=== PATIENT | male | born 1955 | race Caucasian/White ===

== ENCOUNTER 2020-10-14 17:19 | Inpatient (IN) | payer MEDICARE ==
[~2020-10-14] VITALS: Ht 167.6 cm; Wt 56.7 kg
[2020-10-14 18:11] LABS: BASOPHILS 0.3 % (0-2); EOSINOPHILS 1.4 % (0-7); HEMATOCRIT 43.5 % (42.0-54.0); HEMOGLOBIN 15.2 g/dL (13.5-17.5); IMMATURE GRANULOCYTES 0.2 % (0-5); LYMPHOCYTE ABS# 1.29 10x3/uL (1.32-3.57); LYMPHOCYTES 20.2 % (15-50); MCH 31.7 pg (26.0-34.0); MCHC 34.9 g/dL (31.0-37.0); MCV 90.6 fL (80.0-100.0); MONOCYTES 7.7 % (2-11); NEUTROPHIL ABS# 4.48 10x3/uL (1.78-5.38); NEUTROPHILS 70.2 % (40-80); PLATELET COUNT 231 10x3/uL (130-400); RDW 13.1 % (11.5-14.5); WBC 6.4 10x3/uL (4.8-10.8)
[2020-10-14 18:15] LABS: CALC OSMOLALITY 269 mosm/kg (275-300); CARBON DIOXIDE 27.8 mmol/L (21.0-32.0); CHLORIDE - SERUM 101 mmol/L (98-107); CREATININE - SERUM 0.8 mg/dL (0.6-1.3); GLUCOSE 97 mg/dL (74-106); POTASSIUM - SERUM 4.2 mmol/L (3.5-5.1); SODIUM 134 mmol/L (136-145); UREA NITROGEN 18 mg/dL (7-18); eGFR NON AFRICAN AMERICAN > 90 mL/min (90-120)
[2020-10-14 18:21] LABS: ALBUMIN 3.9 g/dL (3.4-5.0); ALKALINE PHOSPHATASE 140 U/L (30-120); ALT (SGPT) 18 U/L (10-68); BILIRUBIN - TOTAL 0.59 mg/dL (0.2-1.3); PROTEIN - SERUM 7.4 g/dL (6.4-8.2)
[2020-10-14 18:22] LABS: INR 1.17 (0.85-1.17); PROTIME 13.8 SECONDS (11.6-15.0)
[2020-10-14 18:47] VITALS: BP 130/89
--- NOTE | 2020-10-14 19:50 | NUR ---
REPORT GIVEN TO RN, VERBAL ACKNOWLEDGEMENT OBTAINED
[2020-10-14 20:04] LABS: HEMATOCRIT 41.6 % (42.0-54.0); HEMOGLOBIN 14.3 g/dL (13.5-17.5)
[2020-10-14 21:38] LABS: BILIRUBIN NEGATIVE (NEGATIVE); KETONE NEGATIVE (NEGATIVE); NITRITE NEGATIVE (NEGATIVE); UROBILINOGEN NORMAL mg/dL (< 2)
--- NOTE | 2020-10-14 22:23 | NUR ---
PT DID NOT GO TO ROOM DUE TO ADMITTING HAD NOT SEEN PT AND THEEN WANTED TO [facility] TO SEE IF WE NEEDED TO GO TO ICU OR FLOOR, PT IS BEING TRANSFERRED AT THIS TO FLOOR.
[2020-10-14 23:07] VITALS: BMI 20.2
[2020-10-15 01:05] LABS: HEMATOCRIT 41.4 % (42.0-54.0); HEMOGLOBIN 14.3 g/dL (13.5-17.5)
--- NOTE | 2020-10-15 01:05 | NUR ---
PT WAS BROUGHT TO THE FLOOR VIA BED. PT WAS ABLE TO SCOOT ONTO PT'S ROOM BED. NO PAIN NOR DISTRESS NOTED AT THIS TIME. ALERT AND ORIENTED TO SELF. WAS ABLE TO TELL ME HE WAS IN [place]. UNABLE TO FULLY COMPLETE ASSESSMENT DUE TO CONFUSION. NURSE WAS ABLE TO CONTACT GRAND-DAUGHTER DEANNA BUT SHE WAS UNSURE OF PATIENTS MEDICATIONS. WILL RELAY FAMILY MEMBERS NUMBER TO DAY SHIFT TO KEEP FAMILY UPDATE ON PATIENTS CONDITION. PATIENT IS CURRENTLY LYING IN BED AT THE LOWEST POSITION WITH CALL LIGHT IN REACH. ROOM IS NEAR NURSING STATION.
[2020-10-15 04:00] VITALS: BP 123/77
--- NOTE | 2020-10-15 06:08 | NUR ---
PT'S ADMISSION VITALS: BP 150/90, T 98.5, HR 78, R 17, O2 98.
[2020-10-15 06:24] LABS: BASOPHILS 0.1 % (0-2); EOSINOPHILS 1.4 % (0-7); HEMATOCRIT 42.4 % (42.0-54.0); HEMOGLOBIN 14.5 g/dL (13.5-17.5); IMMATURE GRANULOCYTES 0.1 % (0-5); LYMPHOCYTES 18.8 % (15-50); MCH 30.9 pg (26.0-34.0); MCHC 34.2 g/dL (31.0-37.0); MCV 90.4 fL (80.0-100.0); MEAN PLATELET VOLUME 11.1 fL (7.4-10.4); MONOCYTES 9.2 % (2-11); NEUTROPHIL ABS# 4.87 10x3/uL (1.78-5.38); NEUTROPHILS 70.4 % (40-80); PLATELET COUNT 243 10x3/uL (130-400); RBC 4.69 10x6/uL (4.20-6.10); RDW 13.1 % (11.5-14.5); WBC 6.9 10x3/uL (4.8-10.8)
[2020-10-15 06:46] LABS: CALC OSMOLALITY 268 mosm/kg (275-300); CALCIUM 9.1 mg/dL (8.5-10.1); CARBON DIOXIDE 25.8 mmol/L (21.0-32.0); CHLORIDE - SERUM 101 mmol/L (98-107); CREATININE - SERUM 0.8 mg/dL (0.6-1.3); GLUCOSE 93 mg/dL (74-106); MAGNESIUM - SERUM 2.1 mg/dL (1.8-2.4); PHOSPHOROUS 3.7 mg/dL (2.5-4.9); SODIUM 134 mmol/L (136-145); UREA NITROGEN 16 mg/dL (7-18); eGFR NON AFRICAN AMERICAN > 90 mL/min (90-120)
--- NOTE | 2020-10-15 07:30 | NUR ---
REC'D IN BED AWAKE AND ALERT. RESP EVEN AND UNLABORED WITH NO DISTRESS NOTED CAN EXPRESS NEEDS AND WANTS. NO C/O NOTED OR VOICED. ASSESSMENT COMPLETED AT THIS TIME. C/L IN REACH AT BEDSIDE.
[2020-10-15 08:14] VITALS: BP 106/57
[2020-10-15] MEDS ORDERED: LISINOPRIL2.5 MG (11:13)
[2020-10-15] MEDS ORDERED: BAYER CHEWABLE81 MG PO (11:13)
[2020-10-15 12:19] VITALS: BP 121/82
--- NOTE | 2020-10-15 13:31 | NUR ---
REC'D CALL FROM PT STACY GÓMEZ AND WAS UNABLE TO TALK TO HIM AT THAT MOMENT DUE TO BEING STEP OUT OF ANOTHER PT ROOM TO ANSWER PHONE. DALIA GAVE HIS PHONE NUMBER TO CALL HIM BACK AT [phone]. THIS NURSE CALLED THE GRANDSON BACK TWICE AND BOTH TIME HE HUNG UP THE PHONE. NO FURTHER ATTEMPTS WAS MADE AFTER THAT.
[2020-10-15 13:43] VITALS: Ht 167.6 cm; Wt 56.7 kg
[2020-10-15] MEDS ORDERED: LISINOPRIL10 MG PO (14:49)
--- NOTE | 2020-10-15 14:49 | NUR ---
[facility] pharmacy called to verify medication list. up to date now in computer.
[2020-10-15 17:05] VITALS: BP 114/83
--- NOTE | 2020-10-15 19:53 | NUR ---
PATIENT IN BED. CONFUSED. DENIES NEEDS AT THIS TIME. BED LOW POSITION, CALL LIGHT IN REACH. FREE FROM SIGNS OF DISTRESS. WILL CONTINUE TO MONITOR.
[2020-10-15 20:00] VITALS: BP 119/47
[2020-10-16] VITALS: BP 105/63
[2020-10-16 01:30] LABS: UDS - AMPHET NEGATIVE QUAL (NEGATIVE); UDS - BARB NEGATIVE QUAL (NEGATIVE); UDS - BENZO NEGATIVE QUAL (NEGATIVE); UDS - COCAINE NEGATIVE QUAL (NEGATIVE); UDS - OPIATE NEGATIVE QUAL (NEGATIVE); UDS - PCP NEGATIVE QUAL (NEGATIVE); UDS - THC NEGATIVE QUAL (NEGATIVE)
--- NOTE | 2020-10-16 02:30 | NUR ---
PT HAS BEEN LYING IN BED. PT MORE CONFUSED THAN YESTERDAY. NO COMPLAINTS OF PAIN AT THIS TIME. BED IN LOWEST POSITION. CALL LIGHT IN REACH. ROOM NEAR NURSING STATION.
[2020-10-16 04:00] VITALS: BP 119/76
[2020-10-16 06:43] LABS: CALC OSMOLALITY 273 mosm/kg (275-300); CALCIUM 8.7 mg/dL (8.5-10.1); CARBON DIOXIDE 22.1 mmol/L (21.0-32.0); CHLORIDE - SERUM 104 mmol/L (98-107); CREATININE - SERUM 0.7 mg/dL (0.6-1.3); GLUCOSE 89 mg/dL (74-106); MAGNESIUM - SERUM 2.5 mg/dL (1.8-2.4); PHOSPHOROUS 4.2 mg/dL (2.5-4.9); SODIUM 137 mmol/L (136-145); UREA NITROGEN 14 mg/dL (7-18); eGFR NON AFRICAN AMERICAN > 90 mL/min (90-120)
[2020-10-16 07:25] LABS: BASOPHILS 0.3 % (0-2); EOSINOPHILS 1.4 % (0-7); HEMATOCRIT 41.6 % (42.0-54.0); HEMOGLOBIN 14.7 g/dL (13.5-17.5); LYMPHOCYTE ABS# 1.52 10x3/uL (1.32-3.57); LYMPHOCYTES 26.5 % (15-50); MCH 31.3 pg (26.0-34.0); MCHC 35.3 g/dL (31.0-37.0); MCV 88.7 fL (80.0-100.0); MEAN PLATELET VOLUME 10.2 fL (7.4-10.4); MONOCYTES 10.1 % (2-11); NEUTROPHIL ABS# 3.54 10x3/uL (1.78-5.38); NEUTROPHILS 61.7 % (40-80); PLATELET COUNT 211 10x3/uL (130-400); RBC 4.69 10x6/uL (4.20-6.10); WBC 5.7 10x3/uL (4.8-10.8)
[2020-10-16 08:14] VITALS: BP 108/72
[2020-10-16] MEDS ORDERED: PROTONIX40 MG PO (11:14)
[2020-10-16 12:24] VITALS: BP 126/85
--- NOTE | 2020-10-16 14:40 | NUR ---
ATTEMPTED TO CALL GRANDDAUGHTER AND DAUGHTER. BUSY SIGNAL ALL TIMES. WCTM
--- NOTE | 2020-10-16 15:30 | NUR ---
SPOKE WITH DEANNA. STATES SHE CANNOT COME UP TO HOSPITAL BECAUSE SHE HAS KIDS BUT SISTER IN LAW SHOULD BE ARRIVING ANY MINUTE NOW. KARY
--- NOTE | 2020-10-16 16:25 | NUR ---
IV THERAPY OUT OF RIGHT FOREARM WITH TIP INTACT. DISCHARGE INSTRUCTIONS GIVEN TO GRANDDAUGHTER MARIA ALEJANDRA. VERBALIZED UNDERSTANDING. ASSISTED TO CAR.
--- NOTE | 2020-10-16 17:06 | NUR ---
OT NOTE: PT IS CONFUSED. PT REQUIRED MOD-MAX A FOR SUPINE TO SIT. PT REQUIRED MIN A FOR SITTING AT EOB. PT REQUIRED MIN-MOD A FOR FACE AND HAND HYGIENE. PT REQUIRED MOD A FOR HAIR GROOMING. 130-2 THANK YOU,MADY LOVING
== END 2020-10-16 16:26 | disposition home or self-care (01) | DRG 377 ==
LOC: D.ER 17:19 → D.MS 19:18 → EDBD 19:18 → D.MS 10-16 16:26
PROVIDERS: Emergency Medicine; Family Medicine; ADMIT Emergency Medicine; ATTEND Emergency Medicine
DX: K92.2 Gastrointestinal hemorrhage, unspecified (principal); G93.41 Metabolic encephalopathy; E87.1 Hypo-osmolality and hyponatremia; Z89.511 Acquired absence of right leg below knee; F03.90 Unspecified dementia, unspecified severity, without behavioral disturbance, psychotic disturbance, mood disturbance, and anxiety